=== PATIENT | female | born 1970 | race Caucasian/White ===

== ENCOUNTER 2019-11-28 13:17 | Emergency (ER) | payer OTHER ==
[2019-11-28] MEDS ORDERED: Acetaminophen/HYDROcodone 325-5 MG Tab PO ONE (13:39)
--- NOTE | 2019-11-28 14:28 | CR ---
Right humerus: 3 views of the right humerus were obtained. Fracture is identified within the mid one third diaphysis of the right humerus. Displacement by almost a shaft width is seen. No additional abnormality is appreciated. Impression: 1. Displaced humeral shaft fracture. Diagnostic code #3 This report was dictated in MDT
[2019-11-28] MEDS ORDERED: HYDROmorphone 0.5 MG/0.5 ML Syringe IVPUSH ONE (15:45)
--- NOTE | 2019-11-28 17:14 | EDM.PDOC ---
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 Has severe pain R shoulder and R arm just below shoulder. Did not hit her head. No neck, back or chest pain. This was called a trauma alert based on mechanism of injury. Left Arm Pain Score (Numeric/FACES): 10 - Related Data Allergies Allergy/AdvReac Type Severity Reaction Status Date / Time No Known Allergies Allergy Verified 11/28/19 13:42 Home Meds: Home Meds Acetaminophen/HYDROcodone [Sage 325-5 MG] 1 tab PO Q6H PRN #20 tablet 11/28/19 [Rx] Tamoxifen [Nolvadex] 20 mg PO DAILY 11/28/19 [History] Past Medical History - Past Health History Medical/Surgical History: Denies Medical/Surgical History - Past Surgical History GI Surgical History: Reports: Cholecystectomy Female Surgical History: Reports: Breast Biopsy Social & Family History - Tobacco Use Smoking Status *Q: Never Smoker - Caffeine Use Caffeine Use: Reports: Soda - Recreational Drug Use Recreational Drug Use: No Review of Systems - Review of Systems Review Of Systems: See Below Constitutional: Reports: No Symptoms Ears: Reports: No Symptoms Nose: Reports: No Symptoms Mouth/Throat: Reports: No Symptoms Respiratory: Denies: Shortness of Breath Cardiovascular: Denies: Chest Pain GI/Abdominal: Denies: Abdominal Pain, Vomiting Musculoskeletal: Denies: Neck Pain, Back Pain Skin: Reports: No Symptoms Neurological: Reports: Numbness (she does have some mild numbness R mid arm). Denies: Weakness ED EXAM, GENERAL - Physical Exam Exam: See Below General Appearance: Alert, Moderate Distress Eye Exam: Bilateral Eye: PERRL Ear Exam: Bilateral Ear: Auricle Normal Nose: Normal Inspection Head: Atraumatic Neck: Supple, Non-Tender Respiratory/Chest: No Respiratory Distress, Lungs Clear, Normal Breath Sounds, Chest Non-Tender Cardiovascular: Regular Rate, Rhythm GI/Abdominal: Non-Tender Extremities: Other (moderate tenderness R shoulder and R upper and mid arm, does not want to move arm due to pain with even minimal movement) Neurological: Alert, Oriented, No Motor/Sensory Deficits ED TRAUMA PROCEDURES - Splinting Right Upper Extremity Splint Site: R short arm Pre-Procedure NV Status: Normal Post-Procedure NV Status: Normal Splint Material: Fiberglass Splint Design: Volar Applied & Form Fitted By: Provider Provider Post-Splint Application NV Check: NV Status Normal Course - Vital Signs Last Recorded V/S: Last Vital Signs Temp 97.1 F 11/28/19 13:36 Pulse 75 11/28/19 14:33 Resp 18 11/28/19 14:33 BP 117/91 H 11/28/19 14:33 Pulse Ox 99 11/28/19 14:33 - Orders/Labs/Meds Orders: Active Orders 24 hr Category Date Time Status Durable Medical Equipment for Discharge [DME for Oth 11/28/19 16:02 Ordered Discharge] [COMM] Stat Meds: Medications Discontinued Medications Generic Name Dose Route Start Last Admin Trade Name Freq PRN Reason Stop Dose Admin Hydrocodone Bitart/Acetaminophen 1 tab 11/28/19 13:39 11/28/19 13:58 Sage 325-5 Mg PO 11/28/19 13:40 1 tab ONETIME ONE Administration Hydromorphone HCl 0.5 mg 11/28/19 15:45 11/28/19 15:49 Dilaudid IVPUSH 11/28/19 15:46 0.25 mg ONETIME ONE Administration - Re-Assessments/Exams Free Text/Narrative Re-Assessment/Exam: 11/29/19 10:12 Xrays show transverse fx of R mid arm with displacement. I have discussed with Dr Cota, Orthopedist public relations supervisor. He recomends treat with sling, outpatient Ortho follow up. Pt lives in [facility]. Her will drive her back home. Have also place a forearm splint to get a bit more wt on her forearm for gravity traction. Distal sensation and pulses R hand intact. Departure - Departure Time of Disposition: 17:11 Disposition: Home, Self-Care 01 Condition: Fair Clinical Impression: Humerus fracture - Discharge Information Prescriptions: Acetaminophen/HYDROcodone [Sage 325-5 MG] 1 tab PO Q6H PRN #20 tablet PRN Reason: Pain Instructions: Humerus Fracture Treated With Immobilization, [id number], Cast or Splint Care, Adult, [id number] Referrals: PCP,Not In Area [Primary Care Provider] - Forms: ED Department Discharge Additional Instructions: Keep short arm splint dry. If that is not working out for or becomes a bother you can safely take it off at any time. R arm sling to support and protect your R arm. See Orthopedist in [place] or [place] next available appointment, preferably later this week. Ice packs and elevation for swelling. Tylenol q 6 to 8 hr for mild moderate pain or hydrocodone for severe pain as needed. Prescription has been sent electronically to [facility]. They are open until about 8 PM this evening. Xrays have been pushed electronically to [facility]. Sepsis Event Note (ED) - Evaluation Sepsis Screening Result: No Definite Risk - My Orders Last 24 Hours: My Active Orders 11/28/19 16:02 Durable Medical Equipment for Discharge [DME for Discharge] [COMM] Stat - Assessment/Plan Last 24 Hours: My Active Orders 11/28/19 16:02 Durable Medical Equipment for Discharge [DME for Discharge] [COMM] Stat
== END 2019-11-28 17:50 | disposition home or self-care (01) ==
LOC: JD.ED 13:17
DX: S42.321A Displaced transverse fracture of shaft of humerus, right arm, initial encounter for closed fracture (principal); W11.XXXA Fall on and from ladder, initial encounter; Y92.69 Other specified industrial and construction area as the place of occurrence of the external cause; Y99.0 Civilian activity done for income or pay
CPT/HCPCS: 29125; 73060; 96374; 99283; A9270; J1170